=== PATIENT | female | born 1975 | race Caucasian/White ===

== ENCOUNTER 2023-09-11 19:26 | Emergency (ER) | payer SELFPAY ==
[2023-09-11 19:30] VITALS: BP 130/89; PULSE 80; RESP 18; TEMP 98.7; BMI 27.3
== END 2023-09-11 20:15 | disposition left against medical advice (07) ==
LOC: JER 19:26
DX: K59.00 Constipation, unspecified (principal)
CPT/HCPCS: 99283-25